=== PATIENT | male | born 1960 | race Caucasian/White ===

== ENCOUNTER 2018-03-06 10:12 | Day surgery (SDC) | payer BC ==
[~2018-03-06] VITALS: Ht 182.9 cm; Wt 91.2 kg
[~2018-03-06 10:12] MED LIST: ASPIR-LOW81 MG PO; CENTRUM SILVER1 EAC3 PO; LISINOPRIL20 MG PO; METOPROLOL TART25 MG PO
== END 2018-03-06 17:05 | disposition short-term general hospital (02) ==
LOC: CATH 10:12 → 2SOUTH 12:46 → ENRESERV 12:54 → CANRESERV 13:00 → ENRESERV 13:00 → 2SOUTH 17:05
DX: I25.110 Atherosclerotic heart disease of native coronary artery with unstable angina pectoris (principal); I10 Essential (primary) hypertension; E78.5 Hyperlipidemia, unspecified; Z87.891 Personal history of nicotine dependence
CPT/HCPCS: 85027; C1769; C1887; G0378; J1644; J2250; J2405; J3010